=== PATIENT | female | born 1965 | race Two or more races ===

== ENCOUNTER 2018-03-15 00:07 | Inpatient (IN) | payer OTHER ==
[~2018-03-15] VITALS: Ht 157.5 cm; Wt 53.5 kg
[2018-03-15] MEDS ORDERED: ONDANSETRON 4 MG/2 ML VIAL IM ONE (00:15)
[2018-03-15] MEDS ORDERED: HYDROMORPHONE 1 MG/1 ML DISP.SYRIN IM ONE (00:15)
--- NOTE | 2018-03-15 00:20 | NUR ---
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 CMS intact, pt. is anxious and guarded, A/Ox4, denies SOB/CP/BOX/N/V/F/C
[2018-03-15] MEDS ORDERED: ONDANSETRON 4 MG/2 ML VIAL ONE (00:22)
[2018-03-15] MEDS ORDERED: HYDROMORPHONE 2 MG/1 ML DISP.SYRIN ONE (00:22)
--- NOTE | 2018-03-15 00:41 | NUR ---
time study technologist at bedside for pelvic/hip xray,
[2018-03-15] MEDS ORDERED: IV NORMAL SALINE 1000 ML BAG IV ONE (01:00)
[2018-03-15] MEDS ORDERED: ACETAMINOPHEN 650 MG SUPP.RECT RC PRN (01:30)
[2018-03-15 01:34] LABS: BASOPHILS % (AUTO) 0.4 % (0.0-2.0); EOSINOPHILS % (AUTO) 0.3 % (0.0-7.0); HEMATOCRIT 37.1 % (31.2-41.9); HEMOGLOBIN 12.5 g/dL (10.9-14.3); LYMPHOCYTES # (AUTO) 1.1 K/uL (20.0-40.0); LYMPHOCYTES % (AUTO) 9.7 % (20.5-51.5); MEAN CORPUSCULAR HEMOGLOBIN 31.8 uug (24.7-32.8); MEAN CORPUSCULAR HGB CONC 34 g/dL (32.3-35.6); MEAN CORPUSCULAR VOLUME 94.6 fL (75.5-95.3); MONOCYTES # (AUTO) 0.8 K/uL (2.0-10.0); MONOCYTES % (AUTO) 7.5 % (0.0-11.0); NEUTROPHILS # (AUTO) 9.2 K/uL (1.8-8.9); NEUTROPHILS % (AUTO) 82.1 % (38.5-71.5); PLATELET COUNT (AUTO) 283 K/uL (179-408); RED BLOOD CELL COUNT(AUTO) 3.93 MIL/uL (3.63-4.92); WHITE BLOOD COUNT (AUTO) 11.2 K/uL (3.8-11.8)
--- NOTE | 2018-03-15 01:45 | NUR ---
Gave report to brendon Danielle. to transfer to tele room 220
[2018-03-15 01:47] LABS: CARBON DIOXIDE 24 mmol/L (21-32); CHLORIDE 101 mmol/L (98-107); CREATININE 0.7 mg/dL (0.6-1.3); GLUCOSE 111 mg/dL (74-106); UREA NITROGEN, BLOOD 9 mg/dL (7-18)
[2018-03-15 01:53] LABS: ALANINE AMINOTRANSFERASE 34 U/L (14-59); ALKALINE PHOSPHATASE 50 U/L (50-136); ASPARTATE AMINOTRANSFERASE 29 U/L (15-37); BILIRUBIN,DIRECT 0.1 mg/dL (0.0-0.2); BILIRUBIN,TOTAL 0.5 mg/dL (0.2-1.0); LIPASE 80 U/L (73-393); TOTAL PROTEIN, SERUM 7.9 g/dL (6.4-8.2)
--- NOTE | 2018-03-15 01:57 | NUR ---
geology technician. at bedside for CXR,
[2018-03-15 02:02] LABS: *BILIRUBIN,URIN NEGATIVE (NEGATIVE); *BLOOD, URINE NEGATIVE (NEGATIVE); *CLARITY,URINE CLEAR (CLEAR); *COLOR,URINE YELLOW (YELLOW); *KETONES,URINE NEGATIVE (NEGATIVE); *UROBILINOGEN,URINE 0.2 E.U./dl (NORMAL); LEUKOCYTE ESTERASE ,URINE NEGATIVE (NEGATIVE); NITRITE, URINE NEGATIVE (NEGATIVE); PH,URINE 6.5 (5.0-8.0); UGLUCOSE NEGATIVE (NEGATIVE)
[2018-03-15 02:04] LABS: BACTERIA,URINE NONE SEEN /HPF (NONE SEEN); RBC,URINE NONE SEEN /HPF (0-3); SQUAMOUS EPITHELIAL CELL,UR FEW /HPF (NONE SEEN); WBC,URINE 0-3 /HPF (0-3)
--- NOTE | 2018-03-15 02:29 | NUR ---
Pt. admitted to tele. room 220 care of Lolis RN, inventory sheet signed, taken off unit, no acute distress,
[2018-03-15 02:30] VITALS: BP 120/71
[2018-03-15] MEDS: IV D5/ 0.9% NACL 1,000 ML IV PRN ×2 (03:18→21:39)
[2018-03-15] MEDS: HYDROMORPHONE 1 MG/1 ML DISP.SYRIN IV PRN ×4 (03:27→18:33)
[2018-03-15 03:46] VITALS: BP 85/53
--- NOTE | 2018-03-15 05:31 | NUR ---
pt admitted from ER, pt alert, oriented, no medical history, pt s/p fall at home, and sustained left hip fracture, pt awaiting to be seen by ortho Dr. Humphries, pt admitted by Dr. Garza , orders carried out, kept npo, started iv fluids and dilaudid given.vss afebrile, this morning bp is running low @ 80's sbp but pt asymptomatic, pt stated she runs low bp. will continue to monitor. sinus rhythm @ 73 .room air, kept bedrest. all needs attended. call light at reached.
--- NOTE | 2018-03-15 07:07 | NUR ---
Call received from Dr. Humphries, states he will see patient this morning
[2018-03-15 07:21] LABS: BILIRUBIN,TOTAL 0.3 mg/dL (0.2-1.0); CREATININE 0.7 mg/dL (0.6-1.3); MAGNESIUM 1.7 mg/dL (1.8-2.4); POTASSIUM 4.1 mmol/L (3.5-5.1)
--- NOTE | 2018-03-15 07:35 | NUR ---
Received patient awake in bed, not in any form of distress. Alert and oriented x 4. With IV access at left antecubital vein 20g to D5NSS infusing well at 80cc/hr. Maintained on NPO for possible surgery for left hip fracture. Monitored for recurrence of hip pain. Bed in low position, side rails up x 2, call light within reach. Will continue to monitor.
[2018-03-15 07:42] LABS: BASOPHILS % (AUTO) 0.3 % (0.0-2.0); EOSINOPHILS % (AUTO) 0.1 % (0.0-7.0); LYMPHOCYTES # (AUTO) 0.9 K/uL (20.0-40.0); LYMPHOCYTES % (AUTO) 10.4 % (20.5-51.5); MEAN CORPUSCULAR HEMOGLOBIN 32.5 uug (24.7-32.8); MEAN CORPUSCULAR HGB CONC 34 g/dL (32.3-35.6); MEAN CORPUSCULAR VOLUME 96.5 fL (75.5-95.3); MONOCYTES # (AUTO) 0.7 K/uL (2.0-10.0); MONOCYTES % (AUTO) 7.6 % (0.0-11.0); NEUTROPHILS # (AUTO) 7.2 K/uL (1.8-8.9); NEUTROPHILS % (AUTO) 81.6 % (38.5-71.5); RED BLOOD CELL COUNT(AUTO) 3.22 MIL/uL (3.63-4.92); WHITE BLOOD COUNT (AUTO) 8.9 K/uL (3.8-11.8)
[2018-03-15 07:53] LABS: HEMATOCRIT 31.1 % (31.2-41.9); HEMOGLOBIN 10.5 g/dL (10.9-14.3); PLATELET COUNT (AUTO) 201 K/uL (179-408)
[2018-03-15] MEDS: PANTOPRAZOLE SODIUM 40 MG VIAL IV SCH (08:34)
--- NOTE | 2018-03-15 10:30 | NUR ---
Received a call from Dr. Humphries, orthopedic MD, relayed pelvic xray findings as requested. Per MD patient will have surgery- IM nailing of left hip tomorrow morning.
--- NOTE | 2018-03-15 11:00 | NUR ---
Patient and had questions regarding the procedure, called Dr. Humphries and transferred call to room phone so patient and can speak to MD. After the call, they had no more questions so informed consent for the procedure was obtained and attached to chart. Per MD patient can eat and just go back to NPO after midnight. Reordered regular diet and NPO after midnight.
[2018-03-15 11:51] VITALS: BP 82/48
[2018-03-15] MEDS: MAGNESIUM SULFATE/D5W 100 ML IV SCH ×2 (12:00→13:25)
--- NOTE | 2018-03-15 15:00 | NUR ---
Patient has 1 episode of vomiting after dilaudid IV was given, spoke with Julio Cesar Montero DNP if zofran can be ordered. Zofran 4mg IV Q6H PRN for nausea and vomiting was ordered.
[2018-03-15 15:14] VITALS: BP 96/52
--- NOTE | 2018-03-15 17:20 | NUR ---
Noted patient's blood pressure this morning were in the 80's/50's but patient was asymptomatic. Latest blood pressure is 96/52.
--- NOTE | 2018-03-15 17:44 | NUR ---
Patient awake in bed, not in any form of distress. IV access at left antecubital vein still patent and intact. No recurrence of severe pain, nausea or vomiting. Patient had no other complaints. Noted patient is for surgery tomorrow morning, consent already in the chart. Patient will be NPO after midnight, will endorse to shift foreman nurse. Bed in low position, side rails up x 2, call light within reach. Ensured patient safety and comfort.
[2018-03-15] MEDS: ONDANSETRON 4 MG/2 ML VIAL IV PRN (18:32)
[2018-03-15 20:18] VITALS: BP 92/50
[2018-03-16] VITALS (9 sets, daily range): BP systolic 91–150; BP diastolic 44–75
[2018-03-16] MEDS ORDERED: IV NORMAL SALINE 250 ML IV ONE (00:30)
--- NOTE | 2018-03-16 00:36 | NUR ---
nsg: pt bp is 91/49, as low as sbp 80's. requesting dilaudid. spoke with Dr. Del Rosario, notified regarding hypotension. received order to give ns 250ml bolus and increased ivf rate to 100ml. may give pain med.
[2018-03-16] MEDS: HYDROMORPHONE 1 MG/1 ML DISP.SYRIN IV PRN ×2 (00:40→04:17)
[2018-03-16] MEDS: ONDANSETRON 4 MG/2 ML VIAL IV PRN (00:43)
--- NOTE | 2018-03-16 05:16 | NUR ---
nsg: pt a/o x 4, c/o left hip pain. medicated with dilaudid 1mg ivp. received a bolus of 250ml NS for low bp sbp 90's. npo for today's surgery. all needs attended. cont to monitor.
[2018-03-16 07:13] LABS: BASOPHILS % (AUTO) 0.6 % (0.0-2.0); EOSINOPHILS # (AUTO) 0.1 K/uL (0.0-0.7); EOSINOPHILS % (AUTO) 1.3 % (0.0-7.0); HEMATOCRIT 28.7 % (31.2-41.9); HEMOGLOBIN 9.7 g/dL (10.9-14.3); LYMPHOCYTES # (AUTO) 1.1 K/uL (20.0-40.0); MEAN CORPUSCULAR HEMOGLOBIN 32.6 uug (24.7-32.8); MEAN CORPUSCULAR HGB CONC 34 g/dL (32.3-35.6); MEAN CORPUSCULAR VOLUME 96.6 fL (75.5-95.3); MONOCYTES # (AUTO) 0.6 K/uL (2.0-10.0); MONOCYTES % (AUTO) 9.1 % (0.0-11.0); NEUTROPHILS # (AUTO) 4.9 K/uL (1.8-8.9); PLATELET COUNT (AUTO) 177 K/uL (179-408); RED BLOOD CELL COUNT(AUTO) 2.97 MIL/uL (3.63-4.92); WHITE BLOOD COUNT (AUTO) 6.7 K/uL (3.8-11.8)
--- NOTE | 2018-03-16 07:45 | NUR ---
Received patient awake in bed, not in any form of distress. Alert and oriented x 4. With IV access at left antecubital vein 20g to D5NSS infusing well at 100cc/hr. With dockery catheter to urine bag, draining well. Maintained on NPO for surgery of left hip fracture. Monitored for recurrence of hip pain. Bed in low position, side rails up x 2, call light within reach. Will continue to monitor.
[2018-03-16 07:46] LABS: CREATININE 0.6 mg/dL (0.6-1.3); MAGNESIUM 1.9 mg/dL (1.8-2.4)
[2018-03-16] MEDS: PANTOPRAZOLE SODIUM 40 MG VIAL IV SCH (08:18)
[2018-03-16] MEDS ORDERED: FENTANYL CITRATE 250 MCG/5 ML AMPUL ONE (08:43)
[2018-03-16] MEDS ORDERED: MIDAZOLAM HCL 2 MG/2 ML VIAL ONE (08:43)
[2018-03-16] MEDS ORDERED: ROCURONIUM BROMIDE 50 MG/5 ML VIAL ONE (08:44)
[2018-03-16] MEDS ORDERED: POLYMYXIN B SULFATE 500,000 UNITS, BACITRACIN 50,000 UNITS, NORMAL SALINE 20 ML MC ONE ×3 (08:45)
--- NOTE | 2018-03-16 08:50 | NUR ---
Patient wheeled to operating room via hospital bed by OR nurses. Informed consent attached to chart which was taken by the OR nurse. accompanied the patient as well. Patient was in stable condition during the transfer. Patient for surgery - IM nailing of the left hip.
[2018-03-16 10:06] LABS: THYROID STIMULATING HORMONE 0.746 mIU/mL (0.358-3.740)
[2018-03-16] MEDS ORDERED: BUPIVACAINE 0.25% 30 ML VIAL ONE (10:48)
[2018-03-16] MEDS ORDERED: FENTANYL CITRATE 100 MCG/2 ML AMPUL ONE (11:07)
[2018-03-16] MEDS ORDERED: KETOROLAC TROMETHAMINE 60 MG INJ IM ONE (11:11)
[2018-03-16] MEDS ORDERED: IV D5W-0.45% NS +20 KCL 0 ML IV ONE (11:25)
[2018-03-16] MEDS ORDERED: BUPIVACAINE/EPI PF 0.5% 10 ML VIAL ONE (11:31)
--- NOTE | 2018-03-16 12:05 | NUR ---
Received patient back from OR via hospital bed. Patient in stable condition, with oxygen support at 2lpm via nasal cannula, tolerated, oxygen saturation at 100%. With IV access still at left AC to ongoing IVF of D5 0.45%NSS + 20meqs KCL, infusing well. Noted with mepilex x 2 at left hip and steristrip at the lower leg, clean, dry and intact. Still with dockery catheter to urine bag, noted with tea colored urine. Patient had clear yellow urine before she was transferred to OR. Will continue to monitor. Complained of pain, prn pain medication given.
[2018-03-16] MEDS: IV D5W-0.45% NS +20 KCL 1,000 ML IV PRN (12:07)
[2018-03-16] MEDS: MORPHINE SULFATE 4 MG/1 ML DISP.SYRIN IV PRN ×5 (12:08→21:38)
[2018-03-16] MEDS ORDERED: IV LACTATED RINGERS SOLUTION 1,000 ML BAG IV ONE (15:17)
[2018-03-16] MEDS ORDERED: NEOSTIGMINE METHYLSULFATE 10 MG/10 ML VIAL IV ONE (15:17)
[2018-03-16] MEDS ORDERED: PROPOFOL 200 MG/20 ML BOTTLE IV ONE (15:17)
[2018-03-16] MEDS ORDERED: GLYCOPYRROLATE 0.2 MG/ML VIAL MC ONE (15:17)
[2018-03-16] MEDS ORDERED: LIDOCAINE-MPF 2% 5 ML VIAL MC ONE (15:17)
[2018-03-16] MEDS ORDERED: SEVOFLURANE 250 ML BOTTLE IH ONE (15:17)
[2018-03-16] MEDS ORDERED: CEFAZOLIN 1 G VIAL MC ONE (15:17)
[2018-03-16] MEDS ORDERED: ONDANSETRON 4 MG/2 ML VIAL IV ONE (15:22)
[2018-03-16] MEDS: CEFAZOLIN 1 G in PREMIXED 1 EACH IV SCH (17:43)
--- NOTE | 2018-03-16 19:25 | NUR ---
RECEIVED PT AWAKE, ALERT, AND ORIENTEDX4. PT SHOWS NO SIGNS OF ACUTE DISTRESS. PT IV INTACT. CALL LIGHT WITHIN REACH. BED ALARM ON. PT ON ANAYA CATHETER AND INTACT , DWELLING WELL OF YELLOW COLOR URINE WITH FEW SEDIMENTS. SAFETY AND COMFORT PROVIDED. WILL CONTINUE TO MONITOR.
--- NOTE | 2018-03-16 19:30 | NUR ---
Patient awake in bed, not in any form of distress. IV access at left antecubital vein still patent and intact to infusing IVF. With dockery catheter to urine bag noted with clearer output. With complains of pain, prn pain medication given. Bed in low position, side rails up x 2, call light within reach. Ensured patient safety and comfort.
[2018-03-17] MEDS: MORPHINE SULFATE 4 MG/1 ML DISP.SYRIN IV PRN ×6 (00:07→11:21)
[2018-03-17] MEDS: CEFAZOLIN 1 G in PREMIXED 1 EACH IV SCH (00:41)
[2018-03-17] MEDS: IV D5W-0.45% NS +20 KCL 1,000 ML IV PRN ×2 (01:17→14:46)
[2018-03-17 04:00] VITALS: BP 99/55
[2018-03-17] MEDS: HYDROCODONE/APAP 10-325 MG TABLET PO PRN ×4 (04:11→23:00)
[2018-03-17 06:54] LABS: BASOPHILS % (AUTO) 0.5 % (0.0-2.0); EOSINOPHILS # (AUTO) 0.1 K/uL (0.0-0.7); HEMATOCRIT 23.5 % (31.2-41.9); HEMOGLOBIN 7.9 g/dL (10.9-14.3); LYMPHOCYTES # (AUTO) 0.9 K/uL (20.0-40.0); LYMPHOCYTES % (AUTO) 15.6 % (20.5-51.5); MEAN CORPUSCULAR HEMOGLOBIN 31.7 uug (24.7-32.8); MEAN CORPUSCULAR HGB CONC 34 g/dL (32.3-35.6); MEAN CORPUSCULAR VOLUME 94.4 fL (75.5-95.3); MONOCYTES # (AUTO) 0.6 K/uL (2.0-10.0); MONOCYTES % (AUTO) 9.9 % (0.0-11.0); NEUTROPHILS # (AUTO) 4.2 K/uL (1.8-8.9); PLATELET COUNT (AUTO) 156 K/uL (179-408); WHITE BLOOD COUNT (AUTO) 5.7 K/uL (3.8-11.8)
[2018-03-17 07:00] LABS: RED BLOOD CELL COUNT(AUTO) 2.49 MIL/uL (3.63-4.92)
--- NOTE | 2018-03-17 07:00 | NUR ---
PATIENT A/O 4, IV INTACT. GIVEN MORPHINE IN THE MORNING BUT WAS CHANGED TO [facility]CO PER DOCTOR'S RECOMMENDATION, PT ANAYA INTACT. THE BAG IS DRAINING CLEAR YELLOW. IV RESTARTED DUE TO PAIN AND S/S INFILTRATION, ON THE LEFT WRIST 20 G, PT EVALUATION COULD NOT TOLERATE DUE TO PAIN, WILL TRY TOMORROW, INT. SPIROMETER USED FREQUENTLY, POSITION CHANGED OFTEN SAFETY AND COMFORT PROVIDED. IV IS RUNNING AT 75/HR 20 MEQ k, TEMPERATURE TAKEN AT 1830 99.0 WILL RECHECK IN 40 MIN PER PATIENT REQ.SAFETY REINFORCED. Addendum: 03/17/18 at 1912 by ARGENIS SIMMONS RN END SHIFT NOTES PATIENT A/O 4, IV INTACT. GIVEN MORPHINE IN THE MORNING BUT WAS CHANGED TO NORCO PER DOCTOR'S RECOMMENDATION, PT ANAYA INTACT. THE BAG IS DRAINING CLEAR YELLOW. IV RESTARTED DUE TO PAIN AND S/S INFILTRATION, ON THE LEFT WRIST 20 G, PT EVALUATION COULD NOT TOLERATE DUE TO PAIN, WILL TRY TOMORROW, INT. SPIROMETER USED FREQUENTLY, POSITION CHANGED OFTEN SAFETY AND COMFORT PROVIDED. IV IS RUNNING AT 75/HR 20 MEQ k, TEMPERATURE TAKEN AT 1830 99.0 WILL RECHECK IN 40 MIN PER PATIENT REQ.SAFETY REINFORCED
[2018-03-17 07:01] LABS: CREATININE 0.6 mg/dL (0.6-1.3); POTASSIUM 4.1 mmol/L (3.5-5.1)
--- NOTE | 2018-03-17 07:13 | NUR ---
PT SLEPT INTERMITTENTLY. PT SHOWS NO SIGNS OF DISTRESS. PT IV INTACT. PRESCRIBED MEDICATION GIVEN AND PT TOLERATED IT WELL.PT GIVEN MORPHINE AT 2138H, 0007H, 0532H, 0710H FOR PAIN. PT ANAYA INTACT. THE BAG IS DRAINING CLEAR YELLOW ON THE FEW HOURS OF MY SHIFT THEN IT BECAME TEA COLORED WITH SEDIMENTS. AT 0100H I CHANGED THE DRAINAGE BAG AND ITS DWELLING CLEAR, YELLOW URINE WITH CHARGED NURSE. SAFETY AND COMFORT PROVIDED. WILL ENDORSE ACCORDINGLY TO INCOMING NURSE FOR CONTINUITY OF CARE.
[2018-03-17] MEDS: PANTOPRAZOLE SODIUM 40 MG VIAL IV SCH (08:45)
[2018-03-17 11:08] VITALS: BP 96/56
[2018-03-17] MEDS: DOCUSATE SODIUM 100 MG CAPSULE PO SCH ×2 (13:51→20:17)
[2018-03-17 15:09] VITALS: BP 104/56
[2018-03-17 19:00] VITALS: BP 110/60
[2018-03-17] MEDS: HYDROMORPHONE 1 MG/1 ML DISP.SYRIN IV PRN (19:54)
--- NOTE | 2018-03-17 19:56 | NUR ---
Received pt in bed, AAO x 4 with family members at bedside. No acute distress noted. Verbally responsive and able to make needs known. C/O 12/17 "unbearable" pain at L hip - s/p left hip ORIF. PRN Dilaudid 1mg IV given per MD order. VSS. Negrete noted draining well into bag, clear yellow urine. Continuing IV fluids @ 75 ml/hr in left wrist 20g, patent and intact with no s/s infiltration. All safety measures and fall precautions maintained. Call light and all personal belongings within reach. Will continue to monitor.
[2018-03-18] MEDS: HYDROMORPHONE 1 MG/1 ML DISP.SYRIN IV PRN ×4 (00:14→19:47)
[2018-03-18 04:00] VITALS: BP 90/49
[2018-03-18] MEDS: IV D5W-0.45% NS +20 KCL 1,000 ML IV PRN (05:01)
[2018-03-18 05:55] LABS: BASOPHILS % (AUTO) 0.6 % (0.0-2.0); EOSINOPHILS # (AUTO) 0.1 K/uL (0.0-0.7); HEMATOCRIT 22.5 % (31.2-41.9); HEMOGLOBIN 7.6 g/dL (10.9-14.3); LYMPHOCYTES # (AUTO) 0.7 K/uL (20.0-40.0); LYMPHOCYTES % (AUTO) 13.2 % (20.5-51.5); MEAN CORPUSCULAR HEMOGLOBIN 32.2 uug (24.7-32.8); MEAN CORPUSCULAR HGB CONC 34 g/dL (32.3-35.6); MEAN CORPUSCULAR VOLUME 94.8 fL (75.5-95.3); MONOCYTES # (AUTO) 0.6 K/uL (2.0-10.0); MONOCYTES % (AUTO) 11.8 % (0.0-11.0); NEUTROPHILS # (AUTO) 3.7 K/uL (1.8-8.9); NEUTROPHILS % (AUTO) 72.4 % (38.5-71.5); PLATELET COUNT (AUTO) 158 K/uL (179-408); WHITE BLOOD COUNT (AUTO) 5.1 K/uL (3.8-11.8)
[2018-03-18 06:28] LABS: RED BLOOD CELL COUNT(AUTO) 2.37 MIL/uL (3.63-4.92)
[2018-03-18] MEDS: PANTOPRAZOLE SODIUM 40 MG TABLET.DR PO SCH (06:29)
[2018-03-18 06:30] LABS: CARBON DIOXIDE 27 mmol/L (21-32); CHLORIDE 103 mmol/L (98-107); CREATININE 0.5 mg/dL (0.6-1.3); GLUCOSE 109 mg/dL (74-106); MAGNESIUM 1.5 mg/dL (1.8-2.4); PHOSPHOROUS 3.7 mg/dL (2.5-4.9); POTASSIUM 4.2 mmol/L (3.5-5.1); UREA NITROGEN, BLOOD 7 mg/dL (7-18)
--- NOTE | 2018-03-18 07:00 | NUR ---
Pt slept comfortably throughout the shift. No acute distress noted. Medicated with PRN pain medication, tolerated well with good effect. Negrete draining well into bag, clear yellow urine. Kept clean and dry. Good pericare rendered. Safety maintained. Call light within reach. Will continue to monitor. Continuing IVF @ 75 ml/hr, no s/s infiltration noted.
[2018-03-18] MEDS: HYDROCODONE/APAP 10-325 MG TABLET PO PRN ×4 (07:29→22:59)
[2018-03-18] MEDS: DOCUSATE SODIUM 100 MG CAPSULE PO SCH ×2 (08:02→20:37)
[2018-03-18 11:12] VITALS: BP 98/60
[2018-03-18] MEDS ORDERED: MAGNESIUM OXIDE 400 MG TABLET PO ONE ×2 (13:00→16:30)
[2018-03-18 15:04] VITALS: BP 90/50
[2018-03-18] MEDS ORDERED: MAGNESIUM HYDROXIDE 30 ML LIQUID UDC PO PRN (15:15)
--- NOTE | 2018-03-18 19:03 | NUR ---
RECEIVED PATIENT IN BED ALERT, COMPLAIN OF PAIN WILL MEDICATION ORDERED. ANAYA CATH PATENT, DRAINING WITH YELLOW COLOR URINE, ENCOURAGE PATIENT TO DRINK FLUIDS, CALL LIGHT WITH REACH.
[2018-03-18 19:53] VITALS: BP 103/68
[2018-03-19] MEDS: HYDROCODONE/APAP 10-325 MG TABLET PO PRN ×3 (04:12→22:07)
[2018-03-19 05:07] VITALS: BP 95/58
[2018-03-19] MEDS: PANTOPRAZOLE SODIUM 40 MG TABLET.DR PO SCH (06:08)
--- NOTE | 2018-03-19 06:51 | NUR ---
PATIENT ALERT ORIENTED, CONT ON PAIN MANAGEMENT, NARCO EFFECTIVE AT THIS TIME, TEACH PATIENT TO TURN AND REPOSITION SELF, ANAYA CATH PATENT DRAINING WITH YELLOW COLOR URINE IN MODERATE AMOUNT. L HIP/THIGH WITH STERI STRIP INTACT, SITE HAS NO REDNESS NO DRAINING NOTED, WITH TENDERNESS. CONT TO MONITOR.
[2018-03-19 07:29] LABS: BASOPHILS % (AUTO) 0.6 % (0.0-2.0); EOSINOPHILS # (AUTO) 0.1 K/uL (0.0-0.7); EOSINOPHILS % (AUTO) 2.1 % (0.0-7.0); HEMATOCRIT 22.9 % (31.2-41.9); LYMPHOCYTES # (AUTO) 0.8 K/uL (20.0-40.0); LYMPHOCYTES % (AUTO) 18.4 % (20.5-51.5); MEAN CORPUSCULAR HGB CONC 35 g/dL (32.3-35.6); MONOCYTES # (AUTO) 0.6 K/uL (2.0-10.0); MONOCYTES % (AUTO) 14.4 % (0.0-11.0); NEUTROPHILS # (AUTO) 2.9 K/uL (1.8-8.9); NEUTROPHILS % (AUTO) 64.5 % (38.5-71.5); PLATELET COUNT (AUTO) 182 K/uL (179-408); WHITE BLOOD COUNT (AUTO) 4.4 K/uL (3.8-11.8)
[2018-03-19 07:30] LABS: RED BLOOD CELL COUNT(AUTO) 2.41 MIL/uL (3.63-4.92)
[2018-03-19 07:40] LABS: CREATININE 0.6 mg/dL (0.6-1.3); MAGNESIUM 1.8 mg/dL (1.8-2.4); PHOSPHOROUS 3.8 mg/dL (2.5-4.9); POTASSIUM 4.4 mmol/L (3.5-5.1)
[2018-03-19] MEDS: DOCUSATE SODIUM 100 MG CAPSULE PO SCH ×2 (09:03→20:28)
[2018-03-19] MEDS: ACETAMINOPHEN 325 MG TABLET PO PRN (09:03)
[2018-03-19] MEDS: HYDROMORPHONE 1 MG/1 ML DISP.SYRIN IV PRN ×2 (09:41→12:52)
[2018-03-19 11:42] VITALS: BP 93/50
--- NOTE | 2018-03-19 18:39 | NUR ---
PT AOX4, PAIN IS MANAGED WITH MEDICATION AND WORKED WITH PHYSICAL THERAPY TODAY. PT SHOWS NO SIGNS OF RESPIRATORY DISTRESS AT THIS TIME, CONTINUE TO MONITOR PT.
[2018-03-19 20:06] VITALS: BP 101/63
[2018-03-20] MEDS: HYDROCODONE/APAP 10-325 MG TABLET PO PRN (04:08)
[2018-03-20 05:20] VITALS: BP 110/73
[2018-03-20 05:26] LABS: BASOPHILS % (AUTO) 0.8 % (0.0-2.0); EOSINOPHILS # (AUTO) 0.2 K/uL (0.0-0.7); EOSINOPHILS % (AUTO) 4.2 % (0.0-7.0); HEMATOCRIT 23.5 % (31.2-41.9); HEMOGLOBIN 8.3 g/dL (10.9-14.3); LYMPHOCYTES % (AUTO) 20.8 % (20.5-51.5); MEAN CORPUSCULAR HEMOGLOBIN 32.8 uug (24.7-32.8); MEAN CORPUSCULAR HGB CONC 35 g/dL (32.3-35.6); MEAN CORPUSCULAR VOLUME 93.3 fL (75.5-95.3); MONOCYTES # (AUTO) 0.8 K/uL (2.0-10.0); MONOCYTES % (AUTO) 15.6 % (0.0-11.0); NEUTROPHILS # (AUTO) 2.9 K/uL (1.8-8.9); NEUTROPHILS % (AUTO) 58.6 % (38.5-71.5); PLATELET COUNT (AUTO) 227 K/uL (179-408); RED BLOOD CELL COUNT(AUTO) 2.52 MIL/uL (3.63-4.92); WHITE BLOOD COUNT (AUTO) 4.9 K/uL (3.8-11.8)
[2018-03-20 05:44] LABS: CREATININE 0.7 mg/dL (0.6-1.3); MAGNESIUM 1.7 mg/dL (1.8-2.4); PHOSPHOROUS 4.4 mg/dL (2.5-4.9); POTASSIUM 4.2 mmol/L (3.5-5.1)
[2018-03-20] MEDS: PANTOPRAZOLE SODIUM 40 MG TABLET.DR PO SCH (06:13)
[2018-03-20 07:44] LABS: EOSINOPHILS % (MANUAL) 2 % (0-8); LYMPHOCYTES % (MANUAL) 24 % (20-40); MONOCYTES % (MANUAL) 10 % (2-10); NEUTROPHILS % (MANUAL) 64 % (42-75)
[2018-03-20] MEDS: DOCUSATE SODIUM 100 MG CAPSULE PO SCH (08:24)
[2018-03-20] MEDS: HYDROMORPHONE 1 MG/1 ML DISP.SYRIN IV PRN ×3 (09:41→18:15)
[2018-03-20 11:23] VITALS: BP 103/60
[2018-03-20] MEDS ORDERED: BISACODYL 10 MG SUPP.RECT RC ONE (12:45)
[2018-03-20] MEDS: MAGNESIUM SULFATE/D5W 100 ML IV SCH ×2 (15:28→16:23)
[2018-03-20 15:34] VITALS: BP 102/67
[2018-03-20] MEDS: ACETAMINOPHEN 325 MG TABLET PO PRN (16:23)
[2018-03-20] MEDS ORDERED: HYDR-4354 PO (17:09)
[2018-03-20] MEDS ORDERED: ASPI-612 PO (17:09)
--- NOTE | 2018-03-20 19:00 | NUR ---
PT DC HOME VIA PRIVATE VEHICLE WITH [facility]. PT LEFT WITH EXIT CARE PACKET, ALL BELONGINGS, VALUABLES, AND PRESCRIPTIONS. PT IV AND ID BAND REMOVED. PT GIVEN THE OFFICE NUMBER AND ADDRESS OF DR. BURLESON. PT STATES THAT SHE WILL MAKE AN APPOINTMENT HERSELF.
== END 2018-03-20 18:57 | disposition home health service (06) | DRG 308 ==
LOC: ER 00:10 → TELE 02:02 → MED 11:25
PROVIDERS: ADMIT Internal Medicine; ATTEND Hospitalist
PROC: 0QS706Z Reposition Left Upper Femur with Intramedullary Internal Fixation Device, Open Approach (ICD-10-PCS; principal; 2018-03-16)
DX: S72.145A Nondisplaced intertrochanteric fracture of left femur, initial encounter for closed fracture (principal); E44.1 Mild protein-calorie malnutrition; W01.0XXA Fall on same level from slipping, tripping and stumbling without subsequent striking against object, initial encounter; Y93.01 Activity, walking, marching and hiking; Y92.89 Other specified places as the place of occurrence of the external cause; Z68.21 Body mass index [BMI] 21.0-21.9, adult; R73.9 Hyperglycemia, unspecified; E78.5 Hyperlipidemia, unspecified
CPT/HCPCS: 36415; 70030-TC; 71045; 72170; 73502; 73503; 83690; 83735; 84100; 84443; 85025; 85730; 93005; 97110; 97116; 97165; 97530; A4649; A4663; C1713; C1769; C9113; G0378; J0690; J1170; J1885; J2250; J2270; J2405; J2710; J3010; J3475; J3490; J7030; J7042; J7050; J7120